=== PATIENT | male | born 1950 | race Caucasian/White ===

== ENCOUNTER → 2017-07-02 | Outpatient (CLI) | payer MEDICARE ==
[~2017-07-02] MED LIST: ACCUPRIL PO; ACCUPRIL40 MG PO; ASPIRIN PO; ASPIRIN81 M2 PO; BACTRIM DS TABL1 TA1 PO; CARDIZEM CD PO; COLESTID PO; DILTIAZEM 24HR300 M1 PO; FISH OIL 1,0001 CAP PO; FISH OIL300 MG PO; FLOMAX0.4 M1 PO; GLUCOSAMIN-CHO1 EACH PO; GLUCOSAMINE CONDROIT; GLUCOTROL PO; LIPITOR PO; LIPITOR40 MG PO; LOZOL PO; METFORMIN HCL1000 M1 PO; METFORMIN HCL500 M1 PO; METFORMIN PO; MICRONASE5 M1 PO; MULTI VITAMIN1 EACH PO; NABUMETONE PO; PROTONIX PO; VICODIN 5/1 TAB 5/50 PO; VYTORIN 10/40 T1 TAB PO
--- NOTE | ~2017-07-02 | US77 ---
[facility] A Service of [facility] RADIOLOGY TEXT RESULTS PATIENT: MATT YEAGER LOCATION: [facility] : 46 UNIT #: [id number] AGE: [address]: ADENIKE MCKEON SEX: M ORDER DR: [id number] [facility]. [place], [place] [address] [id number] MR#: [id number] Acc #: [id number] NAME: MATT YEAGER. : 1950 SEX: M STUDY DATE/TIME: 07/02/2017 12:00 UNIT: US ROOM: STUDY DESCRIPTION: US Kidney Bilateral Complete Attending Physician: Adenike Mckeon Aprn Referring Physician: Adenike Mckeon Aprn Ordering Physician: Physician Non-Staff Primary Care Physician: Lubna Caceres M.D. MEDICAL IMAGING REPORT This report is preliminary unless electronic signature is present EXAM Renal ultrasound. INDICATION Ureteral calculus, status post removal December 2016. Followup. PROCEDURE Francis-scale and Doppler imaging kidneys and bladder. COMPARISON CT from 12/10/2016. FINDINGS Small floating debris is seen in the bladder. Right kidney measures 12.1 cm. No hydronephrosis. Possible 8 mm nonobstructing calculus in the right kidney was not clearly seen on the previous CT. Left kidney measures 12.5 cm. No hydronephrosis. There is a possible 4 mm nonobstructing calculus in the left kidney. IMPRESSION 1. No hydronephrosis. 2. Possible nonobstructing calculi in both kidneys. 3. Debris is seen in the bladder. Dictated by... Kimani Gold M.D. THIS IS AN ELECTRONICALLY VERIFIED REPORT Kimani Gold M.D. at 07/08/2017 8:53 AM EED/abebe [facility] A Service of [facility] RADIOLOGY TEXT RESULTS PATIENT: MATT YEAGER LOCATION: [facility] : 46 UNIT #: [id number] AGE: [address]: ADENIKE MCKEON SEX: M ORDER DR: TD: 07/02/2017 17:44 JOB #: [id number] MEDICAL IMAGING REPORT Page 1 of 1 COPY
== END | disposition home or self-care (01) ==
LOC: CGUS 11:45
DX: N20.2 Calculus of kidney with calculus of ureter (principal); N32.89 Other specified disorders of bladder
CPT/HCPCS: 76770